=== PATIENT | male | born 1960 | race Two or more races ===

== ENCOUNTER 2018-11-14 20:29 | Emergency (ER) | payer MEDICARE, MEDICAID ==
[~2018-11-14] VITALS: Ht 162.6 cm; Wt 63.5 kg
[~2018-11-14 20:29] MED LIST: ACET-1156 PO; ALBUAER3 IN; ALPR2TAB2 PO; ARTISOL13 EACHEYE; ASPI81TA27 PO; ATOR20TA50 PO; BIS10RS PR; CLON1TAB4 PO; DIVA250T61 PO; DOCU100T15 PO; FER325T PO; FLUT500M2 INH; LEVO750T2 PO; MAGN400S25 PO; MONT5CHW17 PO; PANT40TA2 PO; PRE5T PO; QUET200T3 PO; RISP0.5T12 PO; TIOT17SP IN
[2018-11-14 22:13] LABS: Basophils # (auto) 0 uL; Eosinophils # (auto) 0 uL; Eosinophils % (auto) 0.1 % (0.0-7.0); Hemoglobin 8.3 g/dL (13.5-17.5); Monocytes # (auto) 1.3 uL
[2018-11-14 22:21] LABS: Basophils % (auto) 0.1 % (0.0-2.0); Hematocrit 25.9 % (41.0-53.0); Lymphocytes # (auto) 1.4 uL; Lymphocytes % (auto) 12.1 % (10.0-50.0); Mean Corpuscular Hemoglobin 28.5 pg (28.0-32.0); Mean Corpuscular Hgb Conc. 31.9 g/dL (32.0-36.0); Mean Corpuscular Volume 89.2 fL (80.0-100.0); Monocytes % (auto) 11.1 % (0.0-12.0); Neutrophils % (auto) 76.6 % (37.0-80.0); Platelet Count (auto) 414 10^3/uL (140-450); Red Blood Cells 2.91 10^6/uL (4.5-5.90); White Blood Cell 11.8 10^3/uL (4.4-10.8)
[2018-11-14 22:30] LABS: Red Cell Distribution Width 20.8 % (11.8-14.3)
[2018-11-14 22:33] LABS: Blood Urea Nitrogen 28 mg/dL (7-18); Chloride 106 mmol/L (98-107); Potassium 3.6 mmol/L (3.5-5.1); Sodium 137 mmol/L (136-145)
[2018-11-14 22:38] LABS: Alanine Aminotransferase 9 U/L (16-61); Albumin 2.6 g/dL (3.4-5.0); Alkaline Phosphatase 85 U/L (45-117); Anion Gap 6 (5-15); Aspartate Aminotransferase 11 U/L (15-37); BUN/Creatinine Ratio 33.3; Bilirubin, Total 0.1 mg/dL (0.2-1.0); Carbon Dioxide 25 mmol/L (21-32); GFR African American 122 mL/min; GFR Non-African American 100 mL/min; Glucose 80 mg/dL (74-106); Magnesium 2.2 mg/dL (1.6-2.6); Total Protein 6.3 g/dL (6.4-8.2)
[2018-11-15 01:20] VITALS: BP 110/71
== END 2018-11-15 02:36 | disposition home or self-care (01) ==
LOC: EDUNIT# 20:29 → ER 20:35
DX: F20.9 Schizophrenia, unspecified (principal); R07.9 Chest pain, unspecified; J44.9 Chronic obstructive pulmonary disease, unspecified; F14.90 Cocaine use, unspecified, uncomplicated; Z79.899 Other long term (current) drug therapy; Z79.82 Long term (current) use of aspirin; Z95.0 Presence of cardiac pacemaker
CPT/HCPCS: 36415; 80053; 83735; 84443; 84484; 85025; 93005

== ENCOUNTER 2018-11-18 13:04 | Inpatient (IN) | payer MEDICARE, MEDICAID | END 2018-11-22 23:03 | disposition home health service (06) | LOC: TELE-CENTR 11-19 → ER 13:04 → TELE 17:05 → TELE-CENTR 21:48 | PROC: 0DB68ZX Excision of Stomach, Via Natural or Artificial Opening Endoscopic, Diagnostic (ICD-10-PCS; principal; 2018-11-21 11:11) | DX: G93.41 Metabolic encephalopathy (principal); E44.0 Moderate protein-calorie malnutrition; K29.70 Gastritis, unspecified, without bleeding; J44.9 Chronic obstructive pulmonary disease, unspecified; F31.9 Bipolar disorder, unspecified; F20.9 Schizophrenia, unspecified; D64.9 Anemia, unspecified; F41.9 Anxiety disorder, unspecified; K44.9 Diaphragmatic hernia without obstruction or gangrene; K20.9 Esophagitis, unspecified ==

== ENCOUNTER 2019-02-03 19:40 | Emergency (ER) | payer MEDICAID, MEDICARE ==
[~2019-02-03] VITALS: Ht 170.2 cm; Wt 41.4 kg
[~2019-02-03 19:40] MED LIST changes: -ALBUAER3 IN; -ARTISOL13 EACHEYE; -ATOR20TA50 PO; -BIS10RS PR; -CLON1TAB4 PO; -DOCU100T15 PO; -FLUT500M2 INH; -MAGN400S25 PO; -MONT5CHW17 PO; -PRE5T PO; -QUET200T3 PO; -TIOT17SP IN
[2019-02-03 21:22] LABS: Basophils # (auto) 0.1 uL; Basophils % (auto) 0.7 % (0.0-2.0); Eosinophils # (auto) 0.1 uL; Eosinophils % (auto) 0.8 % (0.0-7.0); Hemoglobin 11.4 g/dL (13.5-17.5); Lymphocytes # (auto) 1.7 uL; Mean Corpuscular Hemoglobin 27.4 pg (28.0-32.0); Mean Corpuscular Hgb Conc. 32.6 g/dL (32.0-36.0); Monocytes # (auto) 0.5 uL; Monocytes % (auto) 7.4 % (0.0-12.0); Neutrophils # (auto) 4.8 uL; Neutrophils % (auto) 67.1 % (37.0-80.0); Platelet Count (auto) 535 10^3/uL (140-450); Red Blood Cells 4.17 10^6/uL (4.5-5.90); Red Cell Distribution Width 19.9 % (11.8-14.3); White Blood Cell 7.2 10^3/uL (4.4-10.8)
[2019-02-03 21:45] LABS: Albumin 3.4 g/dL (3.4-5.0); Calcium 9.4 mg/dL (8.5-10.1)
[2019-02-03 21:47] LABS: Bilirubin, Total 0.4 mg/dL (0.2-1.0); Total Protein 7.8 g/dL (6.4-8.2)
[2019-02-04 05:11] LABS: Urine Bacteria NONE SEEN /hpf (None Seen); Urine Blood Negative /uL (Negative); Urine Hyaline Cast FEW /lpf (0 - 2); Urine Mucus FEW (None Seen); Urine Specific Gravity 1.029 (1.001-1.035); Urine WBC 2 /hpf (0 - 3)
[2019-02-04 06:26] VITALS: BP 118/77
== END 2019-02-04 06:35 | disposition home or self-care (01) ==
LOC: ER 19:42
DX: K44.9 Diaphragmatic hernia without obstruction or gangrene (principal); F20.9 Schizophrenia, unspecified; J44.9 Chronic obstructive pulmonary disease, unspecified; F17.210 Nicotine dependence, cigarettes, uncomplicated; Z95.0 Presence of cardiac pacemaker; Z79.2 Long term (current) use of antibiotics; Z79.82 Long term (current) use of aspirin; Z79.899 Other long term (current) drug therapy
CPT/HCPCS: 36415; 71045; 74176; 80053; 81001; 83690; 85025; 93005

== ENCOUNTER 2019-02-04 11:54 | Emergency (ER) | payer MEDICARE ==
[~2019-02-04] VITALS: Ht 170.2 cm; Wt 41.9 kg
[2019-02-04 12:12] VITALS: BP 110/82
== END 2019-02-04 14:49 | disposition left against medical advice (07) ==
LOC: ER 11:54
DX: K46.9 Unspecified abdominal hernia without obstruction or gangrene (principal); Z53.21 Procedure and treatment not carried out due to patient leaving prior to being seen by health care provider

== ENCOUNTER 2020-06-24 10:59 | Emergency (ER) | payer SELFPAY ==
[~2020-06-24] VITALS: Ht 172.7 cm; Wt 59.0 kg
[~2020-06-24 10:59] MED LIST changes: +ASPI-543 PO; -ASPI81TA27 PO; -LEVO750T2 PO; +LEVO750T8 PO
[2020-06-24 11:08] VITALS: BP 153/82
== END 2020-06-24 13:16 | disposition home or self-care (01) ==
LOC: ER 10:59 → EDBD 10:59 → ER 13:16
DX: F41.9 Anxiety disorder, unspecified (principal)

== ENCOUNTER 2020-12-10 10:55 | Emergency (ER) | payer MEDICARE, SELFPAY ==
[~2020-12-10] VITALS: Ht 170.2 cm; Wt 54.4 kg
[~2020-12-10 10:55] MED LIST changes: +DIVA250T PO; -DIVA250T61 PO; -RISP0.5T12 PO; +RISP0.5T17 PO
[2020-12-10] MEDS ORDERED: SODIUM CHLORIDE 0.9% 1,000 ML IV ONE ×2 (11:15)
[2020-12-10] MEDS ORDERED: LORazepam 2MG/ML-1ML VIAL IV ONE (11:30)
[2020-12-10 11:42] LABS: Eosinophils # (auto) 0.1 10 ^3/uL (0-0.8); Mean Corpuscular Hemoglobin 25.1 pg (28.0-32.0); Monocytes # (auto) 0.5 10 ^3/uL (0-1.3); Neutrophils # (auto) 4.8 10 ^3/uL (1.6-8.6)
[2020-12-10 11:44] LABS: Basophils # (auto) 0 10 ^3/uL (0-0.2); Basophils % (auto) 0.6 % (0.0-2.0); Eosinophils % (auto) 1.6 % (0.0-7.0); Hemoglobin 9.5 g/dL (13.5-17.5); Lymphocytes % (auto) 15.9 % (10.0-50.0); Mean Corpuscular Hgb Conc. 31.6 g/dL (32.0-36.0); Mean Corpuscular Volume 79.3 fL (80.0-100.0); Monocytes % (auto) 7.3 % (0.0-12.0); Neutrophils % (auto) 74.6 % (37.0-80.0); Nucleated Red Blood Cells % 0.1 %; Platelet Count (auto) 466 10^3/uL (140-450); Red Blood Cells 3.78 10^6/uL (4.5-5.90); Red Cell Distribution Width 17.4 % (11.8-14.3); White Blood Cell 6.4 10^3/uL (4.4-10.8)
[2020-12-10 11:57] LABS: Albumin 3.3 g/dL (3.4-5.0); Anion Gap 9 (5-15); Blood Urea Nitrogen 23 mg/dL (7-18); Calcium 8.5 mg/dL (8.5-10.1); Carbon Dioxide 24 mmol/L (21-32); Chloride 104 mmol/L (98-107); Glucose 87 mg/dL (74-106); Magnesium 2.5 mg/dL (1.6-2.6); Potassium 3.7 mmol/L (3.5-5.1); Sodium 137 mmol/L (136-145)
[2020-12-10 12:04] LABS: Alanine Aminotransferase 21 U/L (16-61); Alkaline Phosphatase 86 U/L (45-117); Aspartate Aminotransferase 22 U/L (15-37); Bilirubin, Total 0.3 mg/dL (0.2-1.0); GFR African American 103 mL/min; GFR Non-African American 86 mL/min; Total Protein 6.8 g/dL (6.4-8.2)
[2020-12-10 16:12] VITALS: BP 147/61
== END 2020-12-10 16:18 | disposition home or self-care (01) ==
LOC: ER 10:55 → EDBD 10:55 → ER 16:18
DX: R55 Syncope and collapse (principal); R07.9 Chest pain, unspecified; J44.9 Chronic obstructive pulmonary disease, unspecified; F17.210 Nicotine dependence, cigarettes, uncomplicated
CPT/HCPCS: 36415; 70450; 71045; 80053; 83735; 84484; 85025; 93005; 96361; 96374; 99285; J2060; J7030

== ENCOUNTER 2020-12-23 08:34 | Emergency (ER) | payer SELFPAY ==
[~2020-12-23] VITALS: Ht 162.6 cm; Wt 54.4 kg
[2020-12-23 08:49] VITALS: BP 109/84
== END 2020-12-23 13:18 | disposition home or self-care (01) ==
LOC: EDBD 08:34 → MERGE 08:34 → ER 08:34
DX: F20.9 Schizophrenia, unspecified (principal); F17.210 Nicotine dependence, cigarettes, uncomplicated; Z86.73 Personal history of transient ischemic attack (TIA), and cerebral infarction without residual deficits